=== PATIENT | female | born 1990 | race Caucasian/White ===

== ENCOUNTER 2022-07-02 17:15 | Emergency (ER) | payer BC, SELFPAY ==
[2022-07-02 17:19] VITALS: BP 137/99; PULSE 67; RESP 18; TEMP 37.8; O2SAT 100
[2022-07-02 17:53] VITALS: BP 125/77; PULSE 73; RESP 18; O2SAT 100
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
[2022-07-02 20:40] VITALS: TEMP 36.8
[2022-07-02] MEDS: oxyCODONE 5 MG TAB PO (20:40)
[2022-07-02 20:41] VITALS: PULSE 88; RESP 16; TEMP 36.8
== END 2022-07-02 20:39 | disposition home or self-care (01) ==
PROVIDERS: Emergency Provider Physician Assistant
DX: S42.001A Fracture of unspecified part of right clavicle, initial encounter for closed fracture (principal); S70.11XA Contusion of right thigh, initial encounter; S09.90XA Unspecified injury of head, initial encounter; V19.9XXA Pedal cyclist (driver) (passenger) injured in unspecified traffic accident, initial encounter
CPT/HCPCS: 99283; 73000; 99284